=== PATIENT | male | born 1975 | race Caucasian/White ===

== ENCOUNTER 2017-11-19 19:00 | Emergency (ER) | payer SELFPAY | END 2017-11-19 20:45 | disposition left against medical advice (07) | LOC: FTE 19:00 | DX: Z53.21 Procedure and treatment not carried out due to patient leaving prior to being seen by health care provider (principal) | CPT/HCPCS: 82962; 93005 ==

== ENCOUNTER 2019-01-07 02:22 | Emergency (ER) | payer SELFPAY ==
[2019-01-07] MEDS: LIDOCAINE/MYLANTA 40 ML BTL PO (03:20)
[2019-01-07] MEDS: RANITIDINE 150 MG TAB PO (03:20)
[2019-01-07] MEDS: PANTOPRAZOLE (EC) 40 MG TAB PO (03:20)
[2019-01-07] MEDS: LORAZEPAM 1 MG TAB PO (03:20)
== END 2019-01-07 04:21 | disposition home or self-care (01) ==
LOC: FTE 02:22
DX: R10.13 Epigastric pain (principal)
CPT/HCPCS: 99283